=== PATIENT | female | born 1990 | race Caucasian/White ===

== ENCOUNTER 2017-07-30 21:46 | Emergency (ER) | payer OTHER ==
[2017-07-30 21:52] VITALS: RESP 16; TEMP 98.2; O2SAT 97
--- NOTE | 2017-07-30 22:05 | EDPHY ---
H & P Stated Complaint: dizziness, visual changes, "tingling" nausea HPI/ROS: HPI CHIEF COMPLAINT: Lightheadedness, I felt like was going to pass out HISTORY OF PRESENT ILLNESS: This patient is a very pleasant 26-year-old female she has a history of schizoaffective disorder does not take any medications daily she presents emergency room states she feels very lightheaded. Patient was at work. She was folding clothes when all the sudden she got lightheaded. She felt like she was going to pass out. Denies any significant chest pain or shortness of breath. She states her vision got foggy when this happened. She did not collapse. There was no syncopal episode. She has not been sick recently. She denies any shortness of breath or pleuritic pain. Denies palpitations. She decided come the emergency room for evaluation of this this happened 2 hr ago. She felt maybe she was dehydrated. Otherwise not been ill. Denies any nausea vomiting or diarrhea. Past Medical History: Denies significant medical history except for schizoaffective disorder Past Surgical History: Denies significant surgical history Social History: Denies daily use drugs alcohol tobacco products. Family History: Noncontributory ROS REVIEW OF SYSTEMS: A comprehensive 10 point review of systems is otherwise negative aside from elements mentioned in the history of present illness. Exam Constitutional appears well nontoxic, triage nursing summary reviewed, vital signs reviewed, awake/alert. Eyes normal conjunctivae and sclera, EOMI, PERRLA. HENT normal inspection, atraumatic, moist mucus membranes, no epistaxis, neck supple/ no meningismus, no raccoon eyes. Respiratory clear to auscultation bilaterally, normal breath sounds, no respiratory distress, no wheezing. Cardiovascular rate normal, regular rhythm, no murmur, no edema, distal pulses normal. Gastrointestinal soft, non-tender, no rebound, no guarding, normal bowel sounds, no distension, no pulsatile mass. Genitourinary no CVA tenderness. Musculoskeletal no midline vertebral tenderness, full range of motion, no calf swelling, no tenderness of extremities, no meningismus, good pulses, neurovascularly intact. Skin pink, warm, & dry, no rash, skin atraumatic. Neurologic awake, alert and oriented x 3, AAOx3, moves all 4 extremities equally, motor intact, sensory intact, CN II-XII intact, normal cerebellar, normal vision, normal speech. Psychiatric normal mood/affect. Heme/Lymph/Immune no lymphadenopathy. Differential Diagnosis: Includes but is not limited to in a particular order dehydration, electrolyte disturbance, cardiac arrhythmia, orthostatic hypotension Medical Decision Making: Plan for this patient IV establishment IV fluid bolus , check EKG basic blood work and electrolytes, test, and re-evaluate. Check orthostatic vital signs. Re-evaluation: EKG INTERPRETATION BY ME ON RECORD IN [employer] SYSTEM. IMPRESSION time of EKG 2215, sinus rhythm rate of 59 no signs of acute ischemia or signs of cardiac arrhythmia. Unremarkable EKG. Orthostatic vital signs reviewed negative. 2326: Re-examination at this time this patient is resting comfortably. She has no complaints. Blood work is unremarkable. Vital signs are stable. Electrolytes are appropriate. I have not found anything significantly or acutely wrong in her workup here for lightheadedness. She is feeling better after IV fluids. She ambulated well throughout the emergency room without any difficulty she denies any chest pain or shortness of breath denies lightheadedness or dizziness. She denies feeling like she is going to pass out. I have went over return precautions with her she understands return emergency room if she develops any worsening symptoms questions or concerns includes syncope, chest pain, shortness of breath, lightheadedness. Source: Patient - Personal History LMP (Females 10-55): 8-14 Days Ago Current Tetanus Diphtheria and Acellular Pertussis (TDAP): Yes - Medical/Surgical History Hx Asthma: No Hx Chronic Respiratory Disease: No Hx Diabetes: No Hx Cardiac Disease: No Hx Renal Disease: No Hx Cirrhosis: No Hx Alcoholism: No Hx HIV/AIDS: No Hx Splenectomy or Spleen Trauma: No Other PMH: PTSD, Major Depresive Disorder, appendectomy, - Social History Smoking Status: Never smoked Constitutional: Initial Vital Signs Temperature (C) 36.8 C 07/30/17 21:48 Heart Rate 67 07/30/17 21:48 Respiratory Rate 16 07/30/17 21:48 Blood Pressure 104/66 07/30/17 21:48 O2 Sat (%) 97 07/30/17 21:48 O2 Delivery Mode Room Air Allergies/Adverse Reactions: No Known Allergies Allergy (Unverified 07/30/17 21:48) Home Medications: Medication Instructions Recorded NK [No Known Home Meds] 07/30/17 Medical Decision Making - Diagnostics Imaging Results: Imaging Impressions Chest X-Ray 07/30/17 22:09 Impression: No acute thoracic abnormality. - Data Points Laboratory Results: Laboratory Results 07/30/17 22:18 07/30/17 22:18 07/30/17 07/30/17 07/30/17 22:18 22:18 22:18 WBC RBC Hgb Hct MCV MCH MCHC RDW Plt Count MPV Neut % (Auto) Lymph % (Auto) Dickson % (Auto) Eos % (Auto) Baso % (Auto) Nucleat RBC Rel Count Absolute Neuts (auto) Absolute Lymphs (auto) Absolute Monos (auto) Absolute Eos (auto) Absolute Basos (auto) Absolute Nucleated RBC Immature Gran % Immature Gran # PT INR APTT D-Dimer Sodium 138 mEq/L mEq/L (135-145) Potassium 3.8 mEq/L mEq/L (3.5-5.2) Chloride 102 mEq/L mEq/L (97-110) Carbon Dioxide 22 mEq/l mEq/l (22-31) Anion Gap 14 mEq/L mEq/L (8-16) BUN 14 mg/dL mg/dL (7-23) Creatinine 0.7 mg/dL mg/dL (0.6-1.0) Estimated GFR > 60 Glucose 82 mg/dL mg/dL (70-100) Calcium 10.6 mg/dL H mg/dL (8.5-10.4) Magnesium 1.9 mg/dL mg/dL (1.6-2.3) Total Bilirubin 0.6 mg/dL mg/dL (0.1-1.4) Conjugated Bilirubin 0.3 mg/dL mg/dL (0.0-0.5) Unconjugated Bilirubin 0.3 mg/dL mg/dL (0.0-1.1) AST 43 IU/L IU/L (14-46) ALT 54 IU/L H IU/L (9-52) Alkaline Phosphatase 69 IU/L IU/L (38-126) Troponin I < 0.012 ng/mL ng/mL (0.000-0.034) Total Protein 7.5 g/dL g/dL (6.3-8.2) Albumin 4.2 g/dL g/dL (3.5-5.0) Beta HCG, Qual NEGATIVE Urine Color PALE YELLOW Urine Appearance HAZY Urine pH 6.0 (5.0-7.5) Ur Specific [place] 1.005 (1.002-1.030) Urine Protein NEGATIVE (NEGATIVE) Urine Ketones NEGATIVE (NEGATIVE) Urine Blood NEGATIVE (NEGATIVE) Urine Nitrate NEGATIVE (NEGATIVE) Urine Bilirubin NEGATIVE (NEGATIVE) Urine Urobilinogen NEGATIVE EU EU (0.2-1.0) Ur Leukocyte Esterase NEGATIVE (NEGATIVE) Urine Glucose NEGATIVE (NEGATIVE) Urine Opiates Screen NEGATIVE (NEGATIVE) Urine Barbiturates NEGATIVE (NEGATIVE) Ur Phencyclidine Scrn NEGATIVE (NEGATIVE) Ur Amphetamine Screen NEGATIVE (NEGATIVE) U Benzodiazepines Scrn NEGATIVE (NEGATIVE) Urine Cocaine Screen NEGATIVE (NEGATIVE) U Marijuana (THC) Screen NEGATIVE (NEGATIVE) 07/30/17 07/30/17 22:18 22:18 WBC 8.02 10^3/uL 10^3/uL (3.80-9.50) RBC 4.52 10^6/uL 10^6/uL (4.18-5.33) Hgb 14.3 g/dL g/dL (12.6-16.3) Hct 41.3 % % (38.0-47.0) MCV 91.4 fL fL (81.5-99.8) MCH 31.6 pg pg (27.9-34.1) MCHC 34.6 g/dL g/dL (32.4-36.7) RDW 11.7 % % (11.5-15.2) Plt Count 196 10^3/uL 10^3/uL (150-400) MPV 10.3 fL fL (8.7-11.7) Neut % (Auto) 55.9 % % (39.3-74.2) Lymph % (Auto) 34.8 % % (15.0-45.0) Dickson % (Auto) 6.6 % % (4.5-13.0) Eos % (Auto) 1.7 % % (0.6-7.6) Baso % (Auto) 0.6 % % (0.3-1.7) Nucleat RBC Rel Count 0.0 % % (0.0-0.2) Absolute Neuts (auto) 4.48 10^3/uL 10^3/uL (1.70-6.50) Absolute Lymphs (auto) 2.79 10^3/uL 10^3/uL (1.00-3.00) Absolute Monos (auto) 0.53 10^3/uL 10^3/uL (0.30-0.80) Absolute Eos (auto) 0.14 10^3/uL 10^3/uL (0.03-0.40) Absolute Basos (auto) 0.05 10^3/uL 10^3/uL (0.02-0.10) Absolute Nucleated RBC 0.00 10^3/uL 10^3/uL (0-0.01) Immature Gran % 0.4 % % (0.0-1.1) Immature Gran # 0.03 10^3/uL 10^3/uL (0.00-0.10) PT 13.2 SEC SEC (12.0-15.0) INR 0.98 (0.83-1.16) APTT 29.0 SEC SEC (23.0-38.0) D-Dimer < 0.27 ug/mLFEU ug/mLFEU (0.00-0.50) Sodium Potassium Chloride Carbon Dioxide Anion Gap BUN Creatinine Estimated GFR Glucose Calcium Magnesium Total Bilirubin Conjugated Bilirubin Unconjugated Bilirubin AST ALT Alkaline Phosphatase Troponin I Total Protein Albumin Beta HCG, Qual Urine Color Urine Appearance Urine pH Ur Specific [place] Urine Protein Urine Ketones Urine Blood Urine Nitrate Urine Bilirubin Urine Urobilinogen Ur Leukocyte Esterase Urine Glucose Urine Opiates Screen Urine Barbiturates Ur Phencyclidine Scrn Ur Amphetamine Screen U Benzodiazepines Scrn Urine Cocaine Screen U Marijuana (THC) Screen Medications Given: Discontinued Medications Sodium Chloride (Ns) 1,000 mls @ 0 mls/hr IV EDNOW ONE; Wide Open PRN Reason: Protocol Stop: 07/30/17 22:10 Last Admin: 07/30/17 22:16 Dose: 1,000 mls Departure - Departure Disposition: Home, Routine, Self-Care Clinical Impression: Light-headed Condition: Good Instructions: Near Syncope (ED), Lightheadedness (ED) Additional Instructions: 1. Return emergency room if you have any worsening symptoms questions or concerns includes chest pain, shortness of breath, passing out. 2. Stay well-hydrated. Referrals: Dot Hatfield MD [Primary Care Provider] - As per Instructions
[2017-07-30] MEDS ORDERED: NS 1,000 ML IV ONE (22:09)
--- NOTE | 2017-07-30 22:18 | CPEKG ---
Heart Rate: 59 RR Interval: 1017 P-R Interval: 156 QRSD Interval: 82 QT Interval: 416 QTC Interval: 413 P Ruby: 55 QRS Ruby: 60 T Wave Ruby: 44 EKG Severity - NORMAL ECG - EKG Impression: SINUS RHYTHM Electronically Signed By: Raf Waller 31-Jul-2017 07:56:38
[2017-07-30 22:31] LABS: PLATELET COUNT 196 10^3/uL (150-400)
[2017-07-30 23:03] LABS: INR 0.98 (0.83-1.16); PROTIME(PATIENT) 13.2 SEC (12.0-15.0)
[2017-07-30 23:38] VITALS: BP 102/63; PULSE 68
== END 2017-07-30 23:38 | disposition home or self-care (01) ==
DX: R42 Dizziness and giddiness (principal); E86.9 Volume depletion, unspecified
CPT/HCPCS: 80305